=== PATIENT | female | born 1965 | race Caucasian/White ===

== ENCOUNTER 2018-04-25 02:22 | Emergency (ER) | payer BC ==
[~2018-04-25] VITALS: Ht 157.5 cm; Wt 97.5 kg
[2018-04-25 02:26] VITALS: BP 141/75
[2018-04-25] MEDS ORDERED: ALPRAZOLAM 0.5 MG TABLET PO ONE (03:00)
[2018-04-25] MEDS ORDERED: ALPRAZOLAM 0.5 MG TABLET ONE (03:04)
== END 2018-04-25 03:13 | disposition home or self-care (01) ==
LOC: ER 02:24
DX: F12.90 Cannabis use, unspecified, uncomplicated (principal); F41.8 Other specified anxiety disorders
CPT/HCPCS: 99282; A4606; Z7610